=== PATIENT | male | born 1950 | race Caucasian/White ===

== ENCOUNTER 2017-08-04 17:55 | Inpatient (IN) | payer MEDICARE ==
[~2017-08-04 17:55] MED LIST: LISI10TA3 PO; MELO15TA20 PO
[2017-08-04] MEDS ORDERED: LISI40TA PO (20:09)
[2017-08-04 20:30] VITALS: BP 112/55; PULSE 72; RESP 17; TEMP 97.9; O2SAT 99
[2017-08-04] MEDS ORDERED: SODIUM CHLORIDE 0.9% FLUSH 10 ML FLUSH IV FLUSH PRN (21:45)
--- NOTE | 2017-08-04 22:52 | RADRPT ---
EXAM DATE/TIME: 08/04/2017 22:05 [facility] COMPARISON: CT BRAIN W/O CONTRAST, August 04, 2017, 15:29. INDICATIONS : Syncope. MEDICAL HISTORY : Arthritis. Hypertension. Herniated disc. Dyspnea. ETOH abuse. Pneumonia. SURGICAL HISTORY : Appendectomy. ENCOUNTER: Initial ACUITY: 1 day PAIN SCORE: 0/10 LOCATION: Bilateral neck PEAK SYSTOLIC VELOCITIES (cm/sec): ICA/CCA RATIO: Right: 1.3 Left: 1.3 ICA: Right: 100 Left: 84 CCA: Right: 76 Left: 64 ECA: Right: 82 Left: 75 VERTEBRAL: Right: 53 antegrade Left: 44 antegrade Elevated flow velocities and ICA/CCA ratios have been found to correlate with increased degrees of vessel stenosis, calculated as percentage of diameter relative to a normal segment of distal ICA/CCA FINDINGS: RIGHT CAROTID: No significant stenosis is visualized. The waveforms are within normal limits. LEFT CAROTID: No significant stenosis is visualized. The waveforms are within normal limits. VERTEBRAL ARTERIES: Antegrade flow is seen in both vertebral arteries. MISCELLANEOUS: None. CONCLUSION: 1. No evidence for hemodynamically significant stenosis. 2. Antegrade flow in the vertebral arteries. 3. Mild atherosclerosis on the right. Bret Byers MD on August 04, 2017 at 22:50 Board Certified Radiologist. This report was verified electronically.
[2017-08-04] MEDS ORDERED: LORazepam 2 MG TAB PO PRN (23:00)
[2017-08-04] MEDS ORDERED: LORazepam 1 MG TAB PO PRN (23:00)
[2017-08-04] MEDS ORDERED: LORazepam 2 MG/ML VIAL IV PUSH PRN ×4 (23:00)
[2017-08-04] MEDS ORDERED: FLUMAZENIL 0.5 MG/5 ML VIAL IV PUSH PRN (23:00)
--- NOTE | 2017-08-04 23:04 | HHI.HP ---
[facility] Non-Staff Admission Diagnosis Diagnoses: Travel History International Travel<30 Days: No Contact w/Intl Traveler <30 Da: No Traveled to Known Affected Are: No History of Present Illness 66-year-old male with a past medical history significant for hypertension presents to the emergency department after a syncopal episode. Per the patient , he was walking across the living room of his friend's house when the next thing he remembers the paramedics were standing over him. The patient states he felt lightheaded prior to his fall which was witnessed by his friends. He sustained a left eyebrow laceration which was repaired in the emergency department. Head CT was within normal limits. Patient's labs unremarkable. He denies any cardiac history or previous syncopal events. Review of Systems Denies fever or chills Denies blurry vision, otorrhea, rhinorrhea Denies sore throat and cough No chest pain, palpitations, shortness of breath No abdominal pain Denies constipation/diarrhea/nausea/vomiting Denies muscle pain/weakness No rashes Past Family Social History Past Medical History HTN OA Past Surgical History Appendectomy Reported Medications Reported Meds & Active Scripts Active Reported Lisinopril 40 Mg Tab 40 Mg PO DAILY Meloxicam 15 Mg Tab 15 Mg PO DAILY Allergies: Coded Allergies: No Known Allergies (Unverified , 08/04/17) Family History Mother's health unknown. Father of MA at age 82. Social History Smokes one pack per day 40 years. Drinks 3-5 beers daily. Occasional marijuana. Denies all other illicit drugs. Physical Exam Vital Signs Vital Signs Date Time Temp Pulse Resp B/P (MAP) Pulse Ox O2 Delivery O2 Flow Rate FiO2 08/04/17 20:30 97.9 72 17 112/55 (74) 99 Physical Exam GENERAL: Adult male lying in bed, appears older than stated age SKIN: No rashes, ecchymoses or lesions. Cool and dry. HEAD: Atraumatic. Normocephalic. No temporal or scalp tenderness. EYES: Pupils equal round and reactive. Extraocular motions intact. No scleral icterus. No injection or drainage. ENT: Nose without bleeding, purulent drainage or septal hematoma. Throat without erythema, tonsillar hypertrophy or exudate. Uvula midline. Airway patent. NECK: Trachea midline. No JVD or lymphadenopathy. Supple, nontender, no meningeal signs. CARDIOVASCULAR: Regular rate and rhythm without murmurs, gallops, or rubs. RESPIRATORY: Clear to auscultation. Breath sounds equal bilaterally. No wheezes , rales, or rhonchi. GASTROINTESTINAL: Abdomen soft, non-tender, nondistended. No hepato-splenomegaly , or palpable masses. No guarding. MUSCULOSKELETAL: Extremities without clubbing, cyanosis, or edema. No joint tenderness, effusion, or edema noted. No calf tenderness. NEUROLOGICAL: Awake and alert. Cranial nerves II through XII intact. Motor and sensory grossly within normal limits. Normal speech. Caprini VTE Risk Assessment Caprini VTE Risk Assessment: Mod/High Risk (score >= 2) Caprini Risk Assessment Model Point Value = 1 Point Value = 2 Point Value = 3 Point Value = 5 Age 41-60 Minor surgery BMI > 25 kg/m2 Swollen legs Varicose veins or History of unexplained or recurrent spontaneous Oral contraceptives or hormone replacement Sepsis (< 1 month) Serious lung disease, including pneumonia (< 1 month) Abnormal pulmonary function Acute myocardial infarction Congestive heart failure (< 1 month) History of inflammatory bowel disease Medical patient at bed rest Age 61-74 Arthroscopic surgery Major open surgery (> 45 min) Laparoscopic surgery (> 45 min) Malignancy Confined to bed (> 72 hours) Immobilizing plaster cast Central venous access Age >= 75 History of VTE Family history of VTE Factor V Leiden Prothrombin [id number] Lupus anticoagulant Anticardiolipin antibodies Elevated serum homocysteine Heparin-induced thrombocytopenia Other congenital or acquired thrombophilia Stroke (< 1 month) Elective arthroplasty Hip, pelvis, or leg fracture Acute spinal cord injury (< 1 month) Prophylaxis Regimen Total Risk Factor Score Risk Level Prophylaxis Regimen 0-1 Low Early ambulation 2 Moderate Order ONE of the following: *Sequential Compression Device (SCD) *Heparin 5000 units SQ BID 3-4 Higher Order ONE of the following medications: *Heparin 5000 units SQ TID *Enoxaparin/Lovenox 40 mg SQ daily (WT < 150 kg, CrCl > 30 mL/min) *Enoxaparin/Lovenox 30 mg SQ daily (WT < 150 kg, CrCl > 10-29 mL/min) *Enoxaparin/Lovenox 30 mg SQ BID (WT < 150 kg, CrCl > 30 mL/min) AND/OR *Sequential Compression Device (SCD) 5 or more Highest Order ONE of the following medications: *Heparin 5000 units SQ TID (Preferred with Epidurals) *Enoxaparin/Lovenox 40 mg SQ daily (WT < 150 kg, CrCl > 30 mL/min) *Enoxaparin/Lovenox 30 mg SQ daily (WT < 150 kg, CrCl > 10-29 mL/min) *Enoxaparin/Lovenox 30 mg SQ BID (WT < 150 kg, CrCl > 30 mL/min) AND *Sequential Compression Device (SCD) Assessment and Plan Assessment and Plan 66-year-old male with a past medical history significant for hypertension and alcohol dependence who presents after syncopal episode 1. Syncope ACS rule out, first troponin mildly elevated at 0.03. Continue to trend Echo pending Head CT negative Blood sugar within normal limits Sustained eye laceration repaired with hemostasis achieved 2. Hypertension Continue home lisinopril 3. Alcohol abuse [facility] protocol Monitor for signs of DTs FEN Heart healthy diet Electrolytes: Monitor and replete when necessary Heparin Physician Certification 2 Midnight Certification Type: Admission for Inpatient Services Order for Inpatient Services The services are ordered in accordance with Medicare regulations or non- Medicare payer requirements, as applicable. In the case of services not specified as inpatient-only, they are appropriately provided as inpatient services in accordance with the 2-midnight benchmark. Estimated LOS (days): 2 2 days is the estimated time the patient will need to remain in the hospital, assuming treatment plan goals are met and no additional complications. Post-Hospital Plan: Not yet determined Arti Agosto MD Aug 04, 2017 23:04
[2017-08-05] VITALS: BP 111/55; PULSE 64; PULSE 65; RESP 17; TEMP 97.9; O2SAT 96
[2017-08-05] MEDS: ACETAMINOPHEN/HYDROcodone 325 MG/5 MG TAB PO PRN ×3 (01:33→21:54)
[2017-08-05 04:00] VITALS: BP 112/64; PULSE 58; RESP 17; TEMP 98; O2SAT 96
[2017-08-05] MEDS: HEPARIN SODIUM - SQ 10,000 UNITS/ML VIAL SQ SCH ×3 (05:50→21:47)
[2017-08-05 08:00] VITALS: BP_SYST 128; BP_SYST 138; BP_SYST 147; BP_DIAS 64; BP_DIAS 69; BP_DIAS 71; PULSE 61; PULSE 69; RESP 18; TEMP 98.6; O2SAT 72; O2SAT 98
--- NOTE | 2017-08-05 08:24 | HHI.PR ---
Subjective Remarks in no acute distress. denies chest pain, sob or dizziness. no new complaints. Objective Vitals Vital Signs Date Time Temp Pulse Resp B/P (MAP) Pulse Ox O2 Delivery O2 Flow Rate FiO2 08/05/17 04:00 Room Air 08/05/17 04:00 98.0 58 17 112/64 (80) 96 08/05/17 00:00 Room Air 08/05/17 00:00 64 08/05/17 00:00 97.9 65 17 111/55 (73) 96 08/04/17 20:30 97.9 72 17 112/55 (74) 99 08/04/17 20:00 Room Air I/O 08/04/17 08/04/17 08/04/17 08/05/17 08/05/17 08/05/17 07:00 15:00 23:00 07:00 15:00 23:00 Intake Total 240 ml Balance 240 ml Intake Oral 240 ml # Voids 1 Imaging Last Impressions Carotid Artery Ultrasound 08/04/17 0000 Signed Impressions: Service Date/Time: Friday, August 04, 2017 22:05 - CONCLUSION: 1. No evidence for hemodynamically significant stenosis. 2. Antegrade flow in the vertebral arteries. 3. Mild atherosclerosis on the right. Bret Byers MD Objective Remarks GENERAL: This is a well-nourished, well-developed patient, in no apparent distress. CARDIOVASCULAR: Regular rate and regular rhythm without murmurs, gallops, or rubs. RESPIRATORY: Clear to auscultation. Breath sounds equal bilaterally. No wheezes , rales, or rhonchi. GASTROINTESTINAL: Abdomen soft, non-tender, nondistended. Normal, active bowel sounds MUSCULOSKELETAL: Extremities without clubbing, cyanosis, or edema. NEURO: Alert & Oriented x4 to person, place, time, situation. Moves all ext x4 Medications and IVs Current Medications Sodium Chloride (NS Flush) 2 ml UNSCH PRN IV FLUSH FLUSH AFTER USING IV ACCESS ; Start 08/04/17 at 21:45 Sodium Chloride (NS Flush) 2 ml BID IV FLUSH ; Start 08/05/17 at 09:00 Meloxicam (Mobic) 15 mg DAILY PO ; Start 08/05/17 at 09:00 Lisinopril (Prinivil) 40 mg DAILY PO ; Start 08/05/17 at 09:00 Flumazenil (Romazicon Inj) 0.2 mg Q1M PRN IV PUSH SEE LABEL COMMENTS; Start at 23:00 Lorazepam (Ativan) 1 mg Q4H PRN PO CIWA 8 - 10; Start 08/04/17 at 23:00 Lorazepam (Ativan Inj) 1 mg Q4H PRN IV PUSH CIWA 8 - 10; Start 08/04/17 at 23: 00 Lorazepam (Ativan) 2 mg Q2H PRN PO CIWA 11-14; Start 08/04/17 at 23:00 Lorazepam (Ativan Inj) 2 mg Q2H PRN IV PUSH CIWA 11-14; Start 08/04/17 at 23:00 Lorazepam (Ativan Inj) 2 mg Q1H PRN IV PUSH CIWA 15-20; Start 08/04/17 at 23:00 Lorazepam (Ativan Inj) 2 mg Q15M PRN IV PUSH CIWA > 20; Start 08/04/17 at 23:00 Heparin Sodium (Porcine) (Heparin Inj) 5,000 units Q8HR SQ Last administered on 08/05/17 05:50; Start 08/05/17 at 06:00 Acetaminophen/ Hydrocodone Bitart ([place] 5-325 Mg) 1 tab Q4H PRN PO pain > 4 Last administered on 08/05/17 01:33; Start 08/05/17 at 01:15 A/P Assessment and Plan A/P 1. Syncope ACS rule out, first troponin mildly elevated at 0.03. Continue to trend Echo pending Head CT negative carotid doppler with no significant stenosis Blood sugar within normal limits check orthostatic BP. Sustained eye laceration repaired with hemostasis achieved 2. Hypertension Continue home lisinopril- 3. Alcohol abuse [facility] protocol Monitor for signs of DTs Discharge Planning dc home-likely tomorrow- if stable- pending the echo. Jeremy Sosa MD Aug 05, 2017 08:24
[2017-08-05 08:26] LABS: AUTOMATED NEUTROPHIL # 2.3 TH/MM3 (1.8-7.7); BASOPHIL % 0.4 % (0.0-2.0); EOSINOPHIL % 1.2 % (0.0-4.0); HEMOGLOBIN 12.9 GM/DL (13.0-17.0); LYMPH % 29.6 % (9.0-44.0); LYMPHOCYTE # 1.2 TH/MM3 (1.0-4.8); MEAN CELL VOLUME 103.4 FL (80.0-100.0); MEAN CORPUSCULAR HEMOGLOBIN 35.1 PG (27.0-34.0); MEAN CORPUSCULAR HGB CONC 33.9 % (32.0-36.0); MEAN PLATELET VOLUME 9.5 FL (7.0-11.0); MONO % 9.5 % (0.0-8.0); MONOCYTE # 0.4 TH/MM3 (0-0.9); NEUT % 59.3 % (16.0-70.0); PLATELET COUNT 128 TH/MM3 (150-450); RED BLOOD COUNT 3.68 MIL/MM3 (4.50-5.90); WHITE BLOOD COUNT 3.9 TH/MM3 (4.0-11.0)
[2017-08-05 08:48] LABS: BICARBONATE 26.2 MEQ/L (21.0-32.0); CALCIUM 8.4 MG/DL (8.5-10.1); CREATININE 1.08 MG/DL (0.60-1.30)
[2017-08-05 08:51] LABS: TROPONIN I 0.02 NG/ML (0.02-0.05)
[2017-08-05] MEDS: LISINOPRIL 20 MG TAB PO SCH (09:45)
[2017-08-05] MEDS: SODIUM CHLORIDE 0.9% FLUSH 10 ML FLUSH IV FLUSH SCH ×2 (09:46→21:47)
[2017-08-05] MEDS: MELOXICAM 15 MG TAB PO SCH (10:00)
[2017-08-05 12:00] VITALS: BP 118/67; PULSE 62; RESP 18; TEMP 98.5; O2SAT 97
[2017-08-05 16:44] VITALS: BP 95/53; PULSE 58; RESP 18; TEMP 98.6; O2SAT 97
[2017-08-05 20:00] VITALS: BP 124/74; PULSE 59; PULSE 67; RESP 18; TEMP 98.2; O2SAT 98
[2017-08-06] VITALS (8 sets, daily range): BP systolic 111–167; BP diastolic 66–93; PULSE 51–80; RESP 16–20; TEMP 97.4–98; O2SAT 95–100
[2017-08-06] MEDS: HEPARIN SODIUM - SQ 10,000 UNITS/ML VIAL SQ SCH ×3 (05:34→21:42)
[2017-08-06 08:10] LABS: AUTOMATED NEUTROPHIL # 1.7 TH/MM3 (1.8-7.7); BASOPHIL % 0.3 % (0.0-2.0); EOSINOPHIL % 1.5 % (0.0-4.0); HEMATOCRIT 38.6 % (39.0-51.0); HEMOGLOBIN 13.3 GM/DL (13.0-17.0); LYMPH % 32.9 % (9.0-44.0); MEAN CORPUSCULAR HEMOGLOBIN 35.8 PG (27.0-34.0); MEAN CORPUSCULAR HGB CONC 34.4 % (32.0-36.0); MEAN PLATELET VOLUME 9.6 FL (7.0-11.0); MONO % 11.3 % (0.0-8.0); MONOCYTE # 0.4 TH/MM3 (0-0.9); PLATELET COUNT 116 TH/MM3 (150-450); RED BLOOD COUNT 3.71 MIL/MM3 (4.50-5.90); RED CELL DISTRIBUTION WIDTH 12.6 % (11.6-17.2); WHITE BLOOD COUNT 3.1 TH/MM3 (4.0-11.0)
[2017-08-06] MEDS: SODIUM CHLORIDE 0.9% FLUSH 10 ML FLUSH IV FLUSH SCH ×2 (08:23→21:45)
[2017-08-06] MEDS: LISINOPRIL 20 MG TAB PO SCH (08:24)
[2017-08-06] MEDS: MELOXICAM 15 MG TAB PO SCH (08:24)
[2017-08-06] MEDS: ACETAMINOPHEN/HYDROcodone 325 MG/5 MG TAB PO PRN ×2 (08:34→21:49)
--- NOTE | 2017-08-06 08:51 | HHI.PR ---
Subjective Remarks in no acute distress. no chest pain,dizziness, agitation or sob. no new complaints. Objective Vitals Vital Signs Date Time Temp Pulse Resp B/P (MAP) Pulse Ox O2 Delivery O2 Flow Rate FiO2 08/06/17 04:00 97.6 56 16 131/76 (94) 95 08/06/17 00:00 97.9 62 16 113/66 (82) 95 08/05/17 22:54 18 08/05/17 20:00 59 08/05/17 20:00 98.2 67 18 124/74 (91) 98 08/05/17 20:00 Room Air 08/05/17 16:44 98.6 58 18 95/53 (67) 97 08/05/17 12:00 98.5 62 18 118/67 (84) 97 08/05/17 09:00 Room Air I/O 08/05/17 08/05/17 08/05/17 08/06/17 08/06/17 08/06/17 07:00 15:00 23:00 07:00 15:00 23:00 Intake Total 240 ml 480 ml Balance 240 ml 480 ml Intake Oral 240 ml 480 ml # Voids 1 3 # Bowel Movements 0 Result Diagram: 08/06/17 0655 08/05/17 0605 Imaging Last Impressions Carotid Artery Ultrasound 08/04/17 0000 Signed Impressions: Service Date/Time: Friday, August 04, 2017 22:05 - CONCLUSION: 1. No evidence for hemodynamically significant stenosis. 2. Antegrade flow in the vertebral arteries. 3. Mild atherosclerosis on the right. Bret Byers MD Objective Remarks GENERAL: This is a well-nourished, well-developed patient, in no apparent distress. CARDIOVASCULAR: Regular rate and regular rhythm without murmurs, gallops, or rubs. RESPIRATORY: Clear to auscultation. Breath sounds equal bilaterally. No wheezes , rales, or rhonchi. GASTROINTESTINAL: Abdomen soft, non-tender, nondistended. Normal, active bowel sounds MUSCULOSKELETAL: Extremities without clubbing, cyanosis, or edema. NEURO: Alert & Oriented x4 to person, place, time, situation. Moves all ext x4 Procedures none Medications and IVs Current Medications Sodium Chloride (NS Flush) 2 ml UNSCH PRN IV FLUSH FLUSH AFTER USING IV ACCESS ; Start 08/04/17 at 21:45 Sodium Chloride (NS Flush) 2 ml BID IV FLUSH Last administered on 08/06/17 08: 23; Start 08/05/17 at 09:00 Meloxicam (Mobic) 15 mg DAILY PO Last administered on 08/06/17 08:24; Start 08/05/17 at 09:00 Lisinopril (Prinivil) 40 mg DAILY PO Last administered on 08/06/17 08:24; Start 08/05/17 at 09:00 Flumazenil (Romazicon Inj) 0.2 mg Q1M PRN IV PUSH SEE LABEL COMMENTS; Start at 23:00 Lorazepam (Ativan) 1 mg Q4H PRN PO CIWA 8 - 10; Start 08/04/17 at 23:00 Lorazepam (Ativan Inj) 1 mg Q4H PRN IV PUSH CIWA 8 - 10; Start 08/04/17 at 23: 00 Lorazepam (Ativan) 2 mg Q2H PRN PO CIWA 11-14; Start 08/04/17 at 23:00 Lorazepam (Ativan Inj) 2 mg Q2H PRN IV PUSH CIWA 11-14; Start 08/04/17 at 23:00 Lorazepam (Ativan Inj) 2 mg Q1H PRN IV PUSH CIWA 15-20; Start 08/04/17 at 23:00 Lorazepam (Ativan Inj) 2 mg Q15M PRN IV PUSH CIWA > 20; Start 08/04/17 at 23:00 Heparin Sodium (Porcine) (Heparin Inj) 5,000 units Q8HR SQ Last administered on 08/06/17 05:34; Start 08/05/17 at 06:00 Acetaminophen/ Hydrocodone Bitart ([place] 5-325 Mg) 1 tab Q4H PRN PO pain > 4 Last administered on 08/06/17 08:34; Start 08/05/17 at 01:15 A/P Assessment and Plan A/P 1. Syncope ACS ruled out. Echo pending Head CT negative carotid doppler with no significant stenosis Blood sugar within normal limits no orthostatic hypotension. remained in sinus rhythm. Sustained eye laceration repaired with hemostasis achieved 2. Hypertension Continue home lisinopril- 3. Alcohol abuse advised to stop drinking. 4. leukopenia/ thrombocytopenia- due to alcohol- f/u as outpatient ( d/w the patient). Discharge Planning dc home-later today after echo is resulted. see med lits. f/u; pcp. d/w the patient. Jeremy Sosa MD Aug 06, 2017 08:51
[2017-08-06] MEDS ORDERED: MULT1TAB46 PO (08:53)
[2017-08-06] MEDS ORDERED: VITA100T54 PO (08:53)
--- NOTE | 2017-08-06 12:52 | ECHRPT ---
Indication: SYNCOPE CONCLUSIONS Normal left ventricular size. Wall thickness is normal. The left ventricular systolic function is hyperdynamic with an estimated ejection fraction in the ra nge of 65- 70%. The right atrial size is moderately dilated. Mild mitral valve regurgitation. Aortic valve sclerosis is present. Mild aortic valve regurgitation. There is mild tricuspid valve regurgitation. The estimated pulmonary arterial pressure is 28 mmHg. BP: 147 / 71 HR: Rhythm: Sinus MEASUREMENTS (Male / Female) Normal Values Technical Quality:Fair 2D ECHO LV Diastolic Diameter PLAX 5.1 cm 4.2 - 5.9 / 3.9 - 5.3 cm LV Systolic Diameter PLAX 3.5 cm IVS Diastolic Thickness 0.9 cm 0.6 - 1.0 / 0.6 - 0.9 cm LVPW Diastolic Thickness 0.9 cm 0.6 - 1.0 / 0.6 - 0.9 cm LV Relative Wall Thickness 0.3 LVOT Diameter 1.9 cm Aortic Root Diameter 3.7 cm LA Systolic Diameter LX 2.4 cm 3.0 - 4.0 / 2.7 - 3.8 cm M-MODE AV Cusp Separation MM 1.9 cm DOPPLER AV Peak Velocity 152.0 cm/s AV Peak Gradient 9.2 mmHg AV Mean Gradient 5.0 mmHg AV Velocity Time Integral 29.8 cm LVOT Peak Velocity 91.7 cm/s LVOT Peak Gradient 3.4 mmHg LVOT Velocity Time Integral 17.6 cm AV Area Cont Eq vti 1.7 cm AV Area Cont Eq pk 1.7 cm Mitral E Point Velocity 48.4 cm/s Mitral A Point Velocity 46.4 cm/s Mitral E to A Ratio 1.0 LV E' Lateral Velocity 10.4 cm/s Mitral E to LV E' Lateral Ratio 4.7 LV E' Septal Velocity 6.8 cm/s Mitral E to LV E' Septal Ratio 7.1 TR Peak Velocity 212.0 cm/s TR Peak Gradient 18.0 mmHg Right Atrial Pressure 10.0 mmHg Pulmonary Artery Systolic Pressu 28.0 mmHg Right Ventricular Systolic Press 28.0 mmHg PV Peak Velocity 66.9 cm/s PV Peak Gradient 1.8 mmHg FINDINGS LEFT VENTRICLE Normal left ventricular size. Wall thickness is normal. The left ventricular systolic function is hyperdynamic with an estimated ejection fraction in the ra nge of 65- 70%. RIGHT VENTRICLE Normal right ventricular size and systolic function. LEFT ATRIUM The left atrial size is normal. RIGHT ATRIUM The right atrial size is moderately dilated. ATRIAL SEPTUM Normal atrial septal thickness without atrial level shunting by limited color doppler interrogation. AORTA The aortic root and proximal ascending aorta are normal in size on limited imaging. MITRAL VALVE Mild mitral valve regurgitation. AORTIC VALVE Aortic valve sclerosis is present. Mild aortic valve regurgitation. TRICUSPID VALVE There is mild tricuspid valve regurgitation. The estimated pulmonary arterial pressure is 28 mmHg. PULMONARY VALVE No pulmonary valve regurgitation or stenosis. VESSELS The inferior vena cava is normal in size. PERICARDIUM No pericardial effusion. Rocky Perez MD (Electronically Signed) Final Date:06 August 2017 12:51
--- NOTE | 2017-08-06 13:08 | HHI.DS ---
Discharge Summary Admission Date Aug 04, 2017 at 19:41 Discharge Date: Aug 06, 2017 Admitting Diagnosis syncope (1) Syncope ICD Code: R55 - Syncope and collapse Diagnosis: Principal Procedures none Brief History - From Admission 66-year-old male with a past medical history significant for hypertension presents to the emergency department after a syncopal episode. Per the patient , he was walking across the living room of his friend's house when the next thing he remembers the paramedics were standing over him. The patient states he felt lightheaded prior to his fall which was witnessed by his friends. He sustained a left eyebrow laceration which was repaired in the emergency department. Head CT was within normal limits. Patient's labs unremarkable. He denies any cardiac history or previous syncopal events. CBC/BMP: 08/06/17 0655 08/05/17 0605 Significant Findings Laboratory Tests Test 08/05/17 06:05 08/06/17 06:55 White Blood Count 3.9 TH/MM3 (4.0-11.0) 3.1 TH/MM3 (4.0-11.0) Red Blood Count 3.68 MIL/MM3 (4.50-5.90) 3.71 MIL/MM3 (4.50-5.90) Hemoglobin 12.9 GM/DL (13.0-17.0) Hematocrit 38.0 % (39.0-51.0) 38.6 % (39.0-51.0) Mean Corpuscular Volume 103.4 FL (80.0-100.0) 104.0 FL (80.0-100.0) Mean Corpuscular Hemoglobin 35.1 PG (27.0-34.0) 35.8 PG (27.0-34.0) Platelet Count 128 TH/MM3 (150-450) 116 TH/MM3 (150-450) Monocytes (%) (Auto) 9.5 % (0.0-8.0) 11.3 % (0.0-8.0) Blood Urea Nitrogen 21 MG/DL (7-18) Calcium Level 8.4 MG/DL (8.5-10.1) Estimat Glomerular Filtration Rate 68 ML/MIN (>89) Neutrophils # (Auto) 1.7 TH/MM3 (1.8-7.7) Imaging Last Impressions Carotid Artery Ultrasound 08/04/17 0000 Signed Impressions: Service Date/Time: Friday, August 04, 2017 22:05 - CONCLUSION: 1. No evidence for hemodynamically significant stenosis. 2. Antegrade flow in the vertebral arteries. 3. Mild atherosclerosis on the right. Bret Byers MD PE at Discharge GENERAL: This is a well-nourished, well-developed patient, in no apparent distress. CARDIOVASCULAR: Regular rate and regular rhythm without murmurs, gallops, or rubs. RESPIRATORY: Clear to auscultation. Breath sounds equal bilaterally. No wheezes , rales, or rhonchi. GASTROINTESTINAL: Abdomen soft, non-tender, nondistended. Normal, active bowel sounds MUSCULOSKELETAL: Extremities without clubbing, cyanosis, or edema. NEURO: Alert & Oriented x4 to person, place, time, situation. Moves all ext x4 Hospital Course 1. Syncope ACS ruled out. Echo pending Head CT negative carotid doppler with no significant stenosis Blood sugar within normal limits no orthostatic hypotension. remained in sinus rhythm. Sustained eye laceration repaired with hemostasis achieved 2. Hypertension Continue home lisinopril- 3. Alcohol abuse advised to stop drinking. 4. leukopenia/ thrombocytopenia- due to alcohol- f/u as outpatient ( d/w the patient). Pt Condition on Discharge: Stable Discharge Disposition: Discharge Home Discharge Time: <= 30 minutes Discharge Instructions DIET: Follow Instructions for: Heart Healthy Diet Activities you can perform: Regular-No Restrictions Follow up Referrals: PCP Follow-up New Medications: Multiple Vitamin (Multi Vitamin Daily) 1 Tab Tab 1 TAB PO DAILY for vitamin for 30 Days, #30 TAB 0 Refills Thiamine (Vitamin B-1) 100 Mg Tab 100 MG PO DAILY for Nutritional Supplement, #30 TAB 0 Refills Continued Medications: Lisinopril (Lisinopril) 40 Mg Tab 40 MG PO DAILY for Blood Pressure Management, #30 TAB 0 Refills Discontinued Medications: Meloxicam (Meloxicam) 15 Mg Tab 15 MG PO DAILY for Arthritis Pain, #30 TAB 0 Refills Jeremy Sosa MD Aug 06, 2017 13:08
[2017-08-06] MEDS ORDERED: IOHEXOL 350 MG/ML 10 ML VIAL (for RAD DIAG) IVCONTRAST ONE (16:29)
--- NOTE | 2017-08-06 16:31 | RADRPT ---
EXAM DATE/TIME: 08/06/2017 16:06 [facility] COMPARISON: No previous studies available for comparison. INDICATIONS : Syncope IV CONTRAST: 50 cc Omnipaque 350 (iohexol) IV RADIATION DOSE: 22.87 CTDIvol (mGy) MEDICAL HISTORY : Hypertension. SURGICAL HISTORY : Appendectomy. ENCOUNTER: Initial ACUITY: 1 day PAIN SCALE: 0/10 LOCATION: chest TECHNIQUE: Volumetric scanning of the chest was performed using a pulmonary embolism protocol MIP images were re constructed. Using automated exposure control and adjustment of the mA and/or kV according to patien t size, radiation dose was kept as low as reasonably achievable to obtain optimal diagnostic quality images. DICOM format image data is available electronically for review and comparison. Follow-up recommendations for detected pulmonary nodules are based at a minimum on nodule size and pa tient risk factors according to Fleischner Society Guidelines. FINDINGS: PULMONARY ARTERIES: Filling defect within right lower lobe anterior pulmonary artery branches. No filling defects within the right middle lobe or right upper lobe branches. No filling defects are seen in the left pulmonary arteries ratchet. LUNGS: There is no consolidation or pneumothorax . Minimal ground glass densities within the anterior left a nd right upper lobe. Density in the right lower lobe posteriorly and to a lesser degree left lower lo be posteriorly likely atelectasis. No concerning pulmonary nodule is visualized. PLEURAE: There is no pleural thickening or pleural effusion. MEDIASTINUM: There is good visualization of the great vessels of the middle mediastinum. No evidence of mediastin al or hilar adenopathy/mass. MUSCULOSKELETAL: Within normal limits for patient age. MISCELLANEOUS: The visualized upper abdominal organs demonstrate no acute abnormality. CONCLUSION: 1. Pulmonary embolism within right lower lobe branches. 2. Minimal patchy densities in the upper lobes anteriorly and lower lobes likely inflammatory/atelect asis. Mac Clifford MD on August 06, 2017 at 16:24 Board Certified Radiologist. This report was verified electronically.
[2017-08-06] MEDS ORDERED: HEPARIN 25,000 UNITS-D5W 250 ML - PREMIX IV PRN (19:45)
[2017-08-06 21:52] LABS: INTERNATIONAL NORMALIZED RATIO 0.9 RATIO; PROTHROMBIN TIME - PATIENT 10.1 SEC (9.8-11.6)
[2017-08-07] VITALS: BP 115/57; PULSE 54; RESP 20; TEMP 98; O2SAT 96
[2017-08-07 04:00] VITALS: BP_SYST 114; BP_SYST 127; BP_DIAS 68; BP_DIAS 77; PULSE 103; PULSE 60; RESP 20; TEMP 98; TEMP 98.1; O2SAT 100
[2017-08-07] MEDS: HEPARIN SODIUM - SQ 10,000 UNITS/ML VIAL SQ SCH (05:01)
[2017-08-07] MEDS: ACETAMINOPHEN/HYDROcodone 325 MG/5 MG TAB PO PRN (07:26)
[2017-08-07 08:00] VITALS: BP 144/72; PULSE 53; RESP 20; TEMP 97.5; O2SAT 98
[2017-08-07] MEDS: MELOXICAM 15 MG TAB PO SCH (08:25)
[2017-08-07] MEDS: LISINOPRIL 20 MG TAB PO SCH (08:26)
[2017-08-07] MEDS: SODIUM CHLORIDE 0.9% FLUSH 10 ML FLUSH IV FLUSH SCH (08:26)
--- NOTE | 2017-08-07 09:05 | HHI.PR ---
Subjective Remarks in no acute distress. denies pain or sob. no new complaints. d/w the RN and no acute issues over night. Objective Vitals Vital Signs Date Time Temp Pulse Resp B/P (MAP) Pulse Ox O2 Delivery O2 Flow Rate FiO2 08/07/17 07:31 Room Air 08/07/17 04:00 98.1 60 20 127/68 (87) 100 08/07/17 00:00 98.0 54 20 115/57 (76) 96 08/06/17 21:45 Room Air 08/06/17 20:31 51 08/06/17 20:00 98.0 52 20 111/70 (84) 98 08/06/17 17:31 Room Air 08/06/17 16:00 98.0 80 20 167/93 (117) 100 08/06/17 15:15 Room Air 08/06/17 12:32 Room Air 08/06/17 12:00 97.4 57 20 144/76 (98) 100 08/06/17 11:06 63 I/O 08/06/17 08/06/17 08/06/17 08/07/17 08/07/17 08/07/17 07:00 15:00 23:00 07:00 15:00 23:00 Intake Total 360 ml 498 ml Balance 360 ml 498 ml Intake Oral 360 ml 400 ml IV Total 98 ml # Voids 1 Result Diagram: 08/06/17 0655 08/05/17 [address] Angiography 08/06/17 0000 Signed Impressions: Service Date/Time: Sunday, August 06, 2017 16:06 - CONCLUSION: 1. Pulmonary embolism within right lower lobe branches. 2. Minimal patchy densities in the upper lobes anteriorly and lower lobes likely inflammatory/atelectasis. Mac Clifford MD Carotid Artery Ultrasound 08/04/17 0000 Signed Impressions: Service Date/Time: Friday, August 04, 2017 22:05 - CONCLUSION: 1. No evidence for hemodynamically significant stenosis. 2. Antegrade flow in the vertebral arteries. 3. Mild atherosclerosis on the right. Bret Byers MD Objective Remarks GENERAL: This is a well-nourished, well-developed patient, in no apparent distress. CARDIOVASCULAR: Regular rate and regular rhythm without murmurs, gallops, or rubs. RESPIRATORY: Clear to auscultation. Breath sounds equal bilaterally. No wheezes , rales, or rhonchi. GASTROINTESTINAL: Abdomen soft, non-tender, nondistended. Normal, active bowel sounds MUSCULOSKELETAL: Extremities without clubbing, cyanosis, or edema. NEURO: Alert & Oriented x4 to person, place, time, situation. Moves all ext x4 Procedures none Medications and IVs Current Medications Sodium Chloride (NS Flush) 2 ml UNSCH PRN IV FLUSH FLUSH AFTER USING IV ACCESS ; Start 08/04/17 at 21:45 Sodium Chloride (NS Flush) 2 ml BID IV FLUSH Last administered on 08/07/17 08: 26; Start 08/05/17 at 09:00 Meloxicam (Mobic) 15 mg DAILY PO Last administered on 08/07/17 08:25; Start 08/05/17 at 09:00 Lisinopril (Prinivil) 40 mg DAILY PO Last administered on 08/07/17 08:26; Start 08/05/17 at 09:00 Flumazenil (Romazicon Inj) 0.2 mg Q1M PRN IV PUSH SEE LABEL COMMENTS; Start at 23:00 Lorazepam (Ativan) 1 mg Q4H PRN PO CIWA 8 - 10; Start 08/04/17 at 23:00 Lorazepam (Ativan Inj) 1 mg Q4H PRN IV PUSH CIWA 8 - 10; Start 08/04/17 at 23: 00 Lorazepam (Ativan) 2 mg Q2H PRN PO CIWA 11-14; Start 08/04/17 at 23:00 Lorazepam (Ativan Inj) 2 mg Q2H PRN IV PUSH CIWA 11-14; Start 08/04/17 at 23:00 Lorazepam (Ativan Inj) 2 mg Q1H PRN IV PUSH CIWA 15-20; Start 08/04/17 at 23:00 Lorazepam (Ativan Inj) 2 mg Q15M PRN IV PUSH CIWA > 20; Start 08/04/17 at 23:00 Heparin Sodium (Porcine) (Heparin Inj) 5,000 units Q8HR SQ Last administered on 08/06/17 21:42; Start 08/05/17 at 06:00 Acetaminophen/ Hydrocodone Bitart ([place] 5-325 Mg) 1 tab Q4H PRN PO pain > 4 Last administered on 08/07/17 07:26; Start 08/05/17 at 01:15 Iohexol (Omnipaque 350 Inj) 50 ml STK-MED ONCE IVCONTRAST Last administered on 08/06/17 16:29; Start 08/06/17 at 16:29; Stop 08/06/17 at 16:30; Status DC Heparin Sodium/ Dextrose 250 ml @ 12 mls/hr TITRATE PRN IV Coagulation Management Last administered on 08/06/17 22:20; Start 08/06/17 at 19:45 A/P Problem List: (1) Syncope ICD Code: R55 - Syncope and collapse Assessment and Plan A/P 1. Syncope - likely due to PE ACS ruled out. Echo with EF 65% and right atrial enlargement Head CT negative carotid doppler with no significant stenosis Blood sugar within normal limits no orthostatic hypotension. remained in sinus rhythm. Sustained eye laceration repaired with hemostasis achieved 2. PE started on heparin drip- hematology consulted. 3. Hypertension Continue home lisinopril- 4. Alcohol abuse advised to stop drinking. 5. leukopenia/ thrombocytopenia- due to alcohol- f/u as outpatient ( d/w the patient). Discharge Planning dc home within the next 24 hrs if stable and cleared by hematology. d/w the patient and Jeremy Bella MD Aug 07, 2017 09:05
[2017-08-07] MEDS ORDERED: APIX5TAB PO (10:23)
--- NOTE | 2017-08-07 10:47 | MB ---
cc: YURIY RIVERA M.D. DATE OF CONSULTATION: 08/07/2017 REASON FOR CONSULTATION: Consult requested by hospitalist for evaluation of pulmonary embolism. The patient was admitted for syncopal episode. HISTORY OF PRESENT ILLNESS This is a 66-year-old male. He has a history of deep venous thrombosis of the right lower extremity which was diagnosed five years ago. This was an unprovoked deep venous thrombosis. He was admitted to [facility] for few days. He was discharged on Lovenox and Coumadin. Once his INR was therapeutic Lovenox was stopped. The patient did not see any biomedical analytical scientist. This was managed by his primary physician. The patient lives in [place]. Those records are not available. The patient denies any family history of thromboembolic disease. He was he had an syncopal episode and was brought into the emergency room at [facility]. The patient subsequently was transferred to [facility] for further evaluation of the syncopal episode. The patient is was feeling better. He had no further syncopal episode. In fact he was supposed to be discharged yesterday but then the CT angiogram of the chest showed pulmonary embolism within the right lower lobe branches. There minimal patchy densities noted in the upper lobes anteriorly and lower lobes likely inflammatory and atelectasis. Discharge was held. The patient was started on heparin. I have been asked to see him for further evaluation. The patient denies any shortness of breath or cough. He denies any nausea, vomiting, diarrhea. He denies any pleuritic chest pains. The rest of the review of systems is negative. PAST MEDICAL HISTORY Hypertension Arthritis. PAST SURGICAL HISTORY Appendectomy. ALLERGIES None. MEDICATIONS: Medications prior to coming the hospital was lisinopril and meloxicam. The patient is now on heparin. FAMILY HISTORY There is no family history of thromboembolic disease. SOCIAL HISTORY The patient is . He recently quit smoking cigarettes, does not and also drinks alcohol daily. PHYSICAL EXAMINATION: IN GENERAL: Physical examination is a well-developed, well-nourished white male in no apparent distress. VITAL SIGNS: Temperature 98.1, heart rate 60, blood pressure 127/68, O2 saturation 100% on room air. HEAD, EYES, EARS, NOSE, AND THROAT: Pupils equal, round, reactive to light and accommodation, extraocular muscles intact, nonicteric. No oral lesions noted. NECK: No lymphadenopathy noted. LUNGS: The lungs are clear. No wheezing, rhonchi or rales. HEART: Heart is regular rate and rhythm. ABDOMEN: Abdomen is soft, nontender. No hepatosplenomegaly. EXTREMITIES: No pedal edema. NEUROLOGIC: Neurology awake, alert, oriented times threes. SKIN: No significant lesions noted. ASSESSMENT 1. Syncopal episode. 2. Unprovoked pulmonary embolism. 3. History of Deep venous thrombosis of the right lower extremity five years ago, treated with a few years of Coumadin. The patient is not sure how long that he was on Coumadin. 4. Hypertension. 5. Arthritis. PLAN: I have reviewed his available records and I have discussed with the patient regarding the unprovoked pulmonary embolism. This is a second unprovoked thromboembolic thrombosis. The first time was five years ago which was unprovoked, it was in the right lower extremity. The patient claims that he did he did not have any evidence of pulmonary embolism at that time. He was treated with Coumadin for few years. This was managed by his primary physician. My recommendation is to get the Doppler ultrasound of both lower legs to evaluate for any Deep venous thrombosis. The patient is currently on heparin. After the ultrasound results, the patient could be transitioned to Eliquis 10 mg twice a day for seven days followed by 5 mg twice a day. The hypercoagulable panel should be done in nonacute setting as an outpatient in 6-8 weeks when the acute event is resolved. The patient is anxious to go home. Disposition per hospitalist. Thank you for asking my opinion. MD VANESSA Umanzor/alfredo /9:34 AM /9:42 AM ALISON
[2017-08-07 11:18] VITALS: PULSE 77
--- NOTE | 2017-08-07 11:42 | RADRPT ---
EXAM DATE/TIME: 08/07/2017 10:43 [facility] COMPARISON: No previous studies available for comparison. INDICATIONS : Bilateral leg pain. MEDICAL HISTORY : Deep venous thrombosis. Hypertension. Dyspnea. Chest pain. Arthritis. Syncope. SURGICAL HISTORY : Oral surgery. ENCOUNTER: Initial ACUITY: 1 day PAIN SCORE: 2/10 LOCATION: Bilateral legs. TECHNIQUE: Venous ultrasound of the left and right leg was performed from the inguinal ligament to the proximal calf. Real-time, color Doppler and spectral tracing, compression and augmentation techniques were us ed. FINDINGS: RIGHT LEG: There are abnormal intraluminal echoes in the right peroneal vein with lack of normal compression. No residual blood flow is identified indicating nonocclusive thrombus. The remaining vessels of the rig ht lower extremity document normal compression and blood flow without thrombus. LEFT LEG: There are abnormal intraluminal echoes with lack of normal compression and blood flow within the post erior tibial vein. Otherwise, there is normal compressibility of the deep venous system from the ingu inal region to the proximal calf. No echogenic clot is seen in the lumen of the common femoral, femo ral, and popliteal veins. There is a normal response of the venous system to proximal and distal aug mentation and respiration. CONCLUSION: 1. There is nonocclusive thrombus within the right peroneal vein and occlusive thrombus within the le ft posterior tibial vein. 2. The remaining veins in the lower extremities bilaterally are patent. Misael Downs MD on August 07, 2017 at 11:31 Board Certified Radiologist. This report was verified electronically.
[2017-08-07 12:00] VITALS: BP 132/75; PULSE 69; RESP 20; TEMP 98; O2SAT 99
== END 2017-08-07 14:22 | disposition home or self-care (01) | DRG 176 ==
LOC: NEDDLT 17:55 → N04A 19:41
PROVIDERS: ADMIT Internal Medicine; ATTEND Internal Medicine
DX: I26.99 Other pulmonary embolism without acute cor pulmonale (principal); D69.6 Thrombocytopenia, unspecified; R55 Syncope and collapse; I10 Essential (primary) hypertension; S01.112A Laceration without foreign body of left eyelid and periocular area, initial encounter; F10.20 Alcohol dependence, uncomplicated; M19.90 Unspecified osteoarthritis, unspecified site; D72.819 Decreased white blood cell count, unspecified; F17.210 Nicotine dependence, cigarettes, uncomplicated; W18.39XA Other fall on same level, initial encounter; Z86.718 Personal history of other venous thrombosis and embolism
CPT/HCPCS: 70450; 71275; 80048; 80053; 84484; 85025; 85379; 85610; 85730; 93005; 93306; 93880; 93970; J1644; Q9967